=== PATIENT | male | born 1965 | race Caucasian/White ===

== ENCOUNTER 2016-08-22 19:11 | Emergency (ER) | payer SELFPAY ==
[2016-08-22] MEDS ORDERED: METHYLPREDNISOLONE PF 125MG/VIAL IM ONE (19:16)
--- NOTE | 2016-08-22 19:24 | Emergency Department Record ---
History of Present Illness - General Chief complaint: Poison sheryl/oak/sumac exposure Stated complaint: POISON SHERYL Time Seen by Provider: 08/22/16 19:16 Source: Patient Mode of Arrival: Ambulatory Limitations: No limitations - History of Present Illness Initial comments: 51 yo male presents with poison sheryl rash to the RUE and right side that is progressing over the last few days. He has been working outside. No fevers. No facial or eye symptoms. No shortness of breath. MD complaint: Rash -: Days(s) Location: Chest, RUE Severity: Moderate Quality: Other (itches) Consistency: Constant Improves with: None Worsens with: None Context: Other (Outside exposure) Associated symptoms: Itching - Related Data Previous Rx's Medication Instructions Recorded Prednisone [Prednisone 20Mg] 20 mg PO BID #10 tab 08/22/16 Allergies Allergy/AdvReac Type Severity Reaction Status Date / Time aspirin AdvReac DIZZINESS Verified 11/06/15 15:13 Review of Systems Constitutional: Denies: Chills, Fever, Malaise, Weakness Eyes: Denies: Eye discharge ENT: Denies: Congestion, Ear pain, Epistaxis Respiratory: Denies: Cough, Dyspnea, Hemoptysis, Wheezes Cardiovascular: Denies: Chest pain, Palpitations Endocrine: Denies: Fatigue Gastrointestinal: Denies: Abdominal pain, Diarrhea, Nausea, Vomiting Genitourinary: Denies: Frequency, Hematuria Musculoskeletal: Denies: Arthralgia, Back pain, Myalgia Skin: Reports: Change in color, Pruritus, Rash Neurological: Denies: Headache Psychiatric: Denies: Anxiety Hematological/Lymphatic: Denies: Easy bleeding, Easy bruising Past Medical History - SOCIAL HISTORY Smoking Status: Former smoker - RESPIRATORY Hx Respiratory Disorders: Yes Hx Bronchitis: Yes Comment:: spontaneous pneumo on left - CARDIOVASCULAR Hx Cardio Disorders: No - NEURO Hx Neuro Disorders: No - GI Hx GI Disorders: Yes Hx Diverticulitis: Yes - Hx Genitourinary Disorders: No - ENDOCRINE Hx Endocrine Disorders: No - MUSCULOSKELETAL Hx Arthritis: Yes Hx Back Injury: Yes (sciatica) - PSYCH Hx Psych Problems: No - HEMATOLOGY/ONCOLOGY Hx Hematology/Oncology Disorders: No Family Medical History Hx Diabetes: Mother *Heart Comment: hemaphelia Physical Exam - General General Appearance: Alert, Oriented x3, Cooperative, No acute distress Limitations: No limitations - Head Head exam: Normal inspection - Eye Eye exam: Normal appearance. negative: Conjunctival injection, Periorbital swelling - ENT ENT exam: Normal exam Ear exam: Normal external inspection Nasal Exam: Normal inspection Mouth exam: Normal external inspection - Neck Neck exam: Normal inspection - Respiratory Respiratory exam: Normal lung sounds bilaterally. negative: Respiratory distress - Cardiovascular Cardiovascular Exam: Regular rate, Normal rhythm, Normal heart sounds - GI/Abdominal GI/Abdominal exam: Other - Rectal Rectal exam: Deferred - exam: Deferred - Extremities Extremities exam: Other. negative: Normal inspection Image of Full Body: 1 - erythema, raised, itches, no abnormal warmth, no extremity swelling or tenderness 2 - rash CW contact dermatitis - Back Back exam: Reports: Rash noted - Neurological Neurological exam: Alert, Normal gait, Oriented X3, Reflexes normal - Psychiatric Psychiatric exam: Normal affect, Normal mood - Skin Skin exam: Rash Distribution of rash: Abdomen, RUE Description of rash: Confluent, Erythematous, Macular, Papular. negative: Crusting, Discharge Course - Reevaluation(s) Reevaluation #1: Rash is CW contact dermatitis No signs of secondary infection or complication 08/22/16 19:24 Disposition Disposition: Discharge Clinical Impression: Contact dermatitis Qualifiers: Contact dermatitis type: allergic Contact dermatitis trigger: non-food plants Qualified Code(s): L23.7 - Allergic contact dermatitis due to plants, except food Disposition: Home, Self-Care Condition: (1) Good Instructions: Poison Sheryl (ED) Additional Instructions: Return if worse, fever or any new symptoms or concerns Prescriptions: Prednisone [Prednisone 20Mg] 20 mg PO BID #10 tab Forms: Patient Portal Access Time of Disposition: 19:19
== END 2016-08-22 19:34 | disposition home or self-care (01) ==
LOC: ER 19:11
DX: L23.7 Allergic contact dermatitis due to plants, except food (principal)
CPT/HCPCS: 96372; 99283; J2930